=== PATIENT | female | born 1965 | race Caucasian/White ===

== ENCOUNTER → 2019-05-07 | Outpatient (CLI) | payer OTHER ==
[2015-06-06 05:38] VITALS: BP 138/67
[~2019-05-07] MED LIST: AZIT500T PO; BUPR200T PO; CITA20TA9 PO; CYCL-331 PO; DIAZ5TAB4 PO; DIURETIC; FLUT16SP21 NS; HYDR-2145 PO; HYDR4TAB45 PO; LAMO200T6 PO; LEVO50TA5 PO; METH4TAB2 PO; METR500T PO; OMEP40CA2 PO; OTC potassium; PANT40TA3 PO; POTA8TAB6 PO; RISP0.5T3 PO; SIMV40TA18 PO; TRAZ-86 PO
--- NOTE | 2019-05-07 13:19 | RAD ---
EXAM: Lumbar spine, 3 views. HISTORY: Pain. COMPARISON: None. FINDINGS: 3 views of the lumbar spine are obtained. There is grade 1 anterolisthesis of L5 on S1. There is degenerative endplate remodeling with disc space narrowing and facet arthropathy at this level. There is suspected nephrolithiasis. IMPRESSION: 1. Degenerative change primarily at L5-S1. There is associated grade 1 anterolisthesis this level. 2. No acute osseous finding. Electronically signed by: Beatriz Grover MD (05/07/2019 1:16 PM) [facility]
== END | disposition home or self-care (01) ==
LOC: DXRAD 09:02
PROVIDERS: ATTEND Surgery
DX: M47.817 Spondylosis without myelopathy or radiculopathy, lumbosacral region (principal); M48.07 Spinal stenosis, lumbosacral region; M46.87 Other specified inflammatory spondylopathies, lumbosacral region; M43.17 Spondylolisthesis, lumbosacral region
CPT/HCPCS: 72100

== ENCOUNTER → 2019-06-05 | Outpatient (CLI) | payer MEDICAID ==
[2015-06-06 05:38] VITALS: BP 138/67
[~2019-06-05] MED LIST changes: +TRAZ-125 PO; -TRAZ-86 PO
--- NOTE | 2019-06-05 13:02 | RAD ---
EXAM: Lumbar spine, 5 views. HISTORY: Pain. COMPARISON: 05/07/2019. FINDINGS: 5 views of the lumbar spine are obtained. There aren't 5 nonrib-bearing lumbar vertebral segments. There is grade 1 anterolisthesis of L5 and S1. There is degenerative endplate remodeling with disc space narrowing and facet arthropathy at this level. There is suspected left nephrolithiasis. IMPRESSION: 1. Grade 1 anterolisthesis of L5 on S1 with associated degenerative change. This is not appreciably changed compared to the recent comparison exam. 2. No acute osseous finding. Electronically signed by: Beatriz Grover MD (06/05/2019 12:59 PM) [facility]
== END | disposition home or self-care (01) ==
LOC: DXRAD 11:11
PROVIDERS: ATTEND Family Medicine
DX: M43.17 Spondylolisthesis, lumbosacral region (principal); M48.07 Spinal stenosis, lumbosacral region; M46.87 Other specified inflammatory spondylopathies, lumbosacral region; M79.7 Fibromyalgia
CPT/HCPCS: 72110

== ENCOUNTER → 2019-06-28 | Outpatient (CLI) | payer MEDICAID ==
[2015-06-06 05:38] VITALS: BP 138/67
--- NOTE | 2019-06-28 13:53 | RAD ---
EXAM: Pelvic sonogram. HISTORY: Pain. Left ovarian cyst. TECHNIQUE: Transabdominal and transvaginal sonographic imaging of the pelvis is performed. COMPARISON: CT dated 06/05/2015. FINDINGS: The uterus measures 6.6 x 3.9 x 3.2 cm. The endometrial stripe measures 4 mm in thickness. The right ovary is obscured due to bowel gas. There are multiple left ovarian cysts or single cyst with multiple septations measuring 4.8 cm in conglomerate. There is blood flow within the surrounding left ovarian parenchyma. There is an incidental nabothian cyst within the cervix. There is no pelvic free fluid. IMPRESSION: 1. Multiple cysts or complex cyst with septations within the left adnexa measuring 4.8 cm, likely ovarian or paraovarian in etiology. This is demonstrated on a CT dated 06/05/2015. The 4 year course of stability, allowing for differences in imaging modality, favors benignity. However, given the postmenopausal status the patient, correlation with a serum CA-125 tumor marker level, possible surgical consultation and continued follow-up is recommended. 2. Obscured right ovary. Electronically signed by: Beatriz Grover MD (06/28/2019 1:49 PM) [facility]
== END | disposition home or self-care (01) ==
LOC: US 12:34
PROVIDERS: ATTEND Obstetrics & Gynecology
DX: N88.8 Other specified noninflammatory disorders of cervix uteri (principal); Z78.0 Asymptomatic menopausal state
CPT/HCPCS: 76830; 76856

== ENCOUNTER → 2019-07-09 | Outpatient (CLI) | payer MEDICAID ==
[2015-06-06 05:38] VITALS: BP 138/67
== END | disposition home or self-care (01) ==
LOC: LAB 10:42
PROVIDERS: ATTEND Obstetrics & Gynecology
DX: N83.299 Other ovarian cyst, unspecified side (principal)
CPT/HCPCS: 36415; 86304; 86305

== ENCOUNTER 2019-07-25 04:58 | Emergency (ER) | payer MEDICAID ==
[~2019-07-25] VITALS: Ht 165.1 cm; Wt 100.2 kg
--- NOTE | 2019-07-25 05:06 | PHYS DOC ---
Past History Past Medical History: Anxiety, Bipolar, Cancer, High Cholesterol, Hypertension, Hypothyroid, Migraines, Other (SANIA ELLISON MD) Past Surgical History: Cancer Surgery, , Tubal ligation (SANIA ELLISON MD) Smoking: Greater than 1 pack/day Alcohol Use: Rarely Drug Use: None (SANIA ELLISON MD) Adult General Chief Complaint Chief Complaint: ..." I ve had a headache for two days now.. ever since I bumped my head on table when I was cleaning a high chair.. I ve not been able to sleep for two days... and I took my BP and it was only 56/... and I was dizzy so I felt I had to get to hospital right away... " HPI HPI Patient is a 53 year old female who presents with above hx and complaints of a headache for 2 days and hypotension tonight. Patient has a multitude of presenting medical complaints. Patient has history of bipolar disorder, anxiety disorder, kidney cancer on the left-status post surgery, ovarian cysts, high cholesterol, hypertension, hypothyroidism, chronic migraines, chronic neck and low back pain, dysfunctional uterine bleeding, left ovarian cyst, chronic pain and fibromyalgia. Patient currently following with Dr. Tavarez. Patient has a recent change off her Wellbutrin to Cymbalta. Change to lisinopril to verapamil. (SANIA ELLISON MD) Review of Systems Review of Systems Constitutional: Denies fever or chills [] Eyes: Denies change in visual acuity, redness, or eye pain [] HENT: Denies nasal congestion or sore throat [] Respiratory: Complaints of shortness of breath [] Cardiovascular: No additional information not addressed in HPI [] GI: Denies abdominal pain, vomiting, bloody stools or diarrhea Pt. ]complaints of nausea : Denies dysuria or hematuria [] Musculoskeletal:. Complaints of back pain , neck pain, and joint pain [] Integument: Denies rash or skin lesions [] Neurologic: Complaints of headache. Complains of insomnia. Endocrine: Denies polyuria or polydipsia [] All other systems were reviewed and found to be within normal limits, except as documented in this note. (SANIA ELLISON MD) Family History Family History Patient adopted does not know her family history (SANIA ELLISON MD) Current Medications Current Medications He nursing for home medications (SANIA ELLISON MD) Allergies Allergies Allergies Coded Allergies Type Severity Reaction Last Updated Verified adhesive tape Allergy Intermediate 06/05/15 Yes codeine Allergy Intermediate Nausea 06/05/15 Yes influenza virus vaccine, specific Allergy Intermediate 12/02/14 Yes pneumococcal vaccine Allergy Intermediate 12/02/14 Yes latex Allergy Unknown 06/05/15 Yes Penicillins Adverse Reaction Unknown MILD 12/02/14 Yes (SANIA ELLISON MD) Physical Exam Physical Exam Constitutional: in acute emotional distress, non-toxic appearance. [] HENT: Normocephalic, atraumatic, bilateral external ears normal, oropharynx moist, no oral exudates, nose normal. Very poor dentition Eyes: PERRLA, EOMI, conjunctiva normal, no discharge. [] Neck: Normal range of motion, complains of general para cervical tenderness, supple, no stridor. [] Cardiovascular:Heart rate regular rhythm, no murmur [] Lungs & Thorax: Bilateral breath sounds equal apex with few scattered wheezes auscultation [] Abdomen: Bowel sounds normal, soft, no tenderness, no masses, no pulsatile masses. Multiple old surgery scars. Obese Skin: Warm, dry, no erythema, no rash. [] Back: No tenderness, no CVA tenderness. [] Extremities: No tenderness, no cyanosis, no clubbing, ROM intact, no edema. [] Neurologic: Alert and oriented X 3, moves all extremities on request, does have distal sensory, no focal deficits noted. DTRs +3 at patella. Does have some clonus deep tendon percussion of patella. Psychologic: Affect extremely anxious,, judgement normal, mood normal. [] (SANIA ELLISON MD) EKG EKG Pending at shift change[] (SANIA ELLISON MD) Radiology/Procedures Radiology/Procedures CT and chest x-ray pending at shift change[] (SANIA ELLISON MD) Course & Med Decision Making Course & Med Decision Making Pertinent Labs and Imaging studies reviewed. (See chart for details) Dr. Christianson will make final disposition on patient. Impression: 1. Headche 2. Insomnia 3. Reported Hypotension? 4. Hx. of Bipolar 5. Hx. Anxiety Disorder [] (SANIA ELLISON MD) Course & Med Decision Making Patient care was received from Dr. Ellison at 6:00 AM. At the time of his departure, a workup was pending to include blood work as well as CT of the head and chest x-ray. Patient's workup is returned unremarkable. Findings were reviewed with patient and patient indicated that she is applying for disability and specifically was wondering if this visit would apply for her disability yovani blankenship. Patient states that she has numerous mental health problems. (TATO CHRISTIANSON Jr. DO) Dragon Disclaimer Dragon Disclaimer This electronic medical record was generated, in whole or in part, using a voice recognition dictation system. (SANIA ELLISON MD) Departure Departure: Impression: Primary Impression: Headache Additional Impression: Dizziness Disposition: 01 HOME, SELF-CARE Condition: STABLE Referrals: RAY TAVAREZ MD (PCP) Patient Instructions: Dizziness, Headache, FAQs Additional Instructions: Follow-up with your primary care provider in the next few days. Scripts Meclizine Hcl (MECLIZINE HCL) 25 Mg Tablet 1 TAB PO PRN TID PRN for DIZZINESS, #30 TAB Prov: TATO CHRISTIANSON Jr., DO 07/25/19 Dragon Disclaimer This chart was dictated in whole or in part using Voice Recognition software in a busy, high-work load, and often noisy Emergency Department environment. It may contain unintended and wholly unrecognized errors or omissions. (SANIA ELLISON MD) Problem Qualifiers Primary Impression: Headache Headache type: unspecified Headache chronicity pattern: episodic headache Intractability: not intractable Qualified Codes: R51 - Headache SANIA ELLISON MD Jul 25, 2019 05:06 TATO CHRISTIANSON Jr., DO Jul 25, 2019 07:23
[2019-07-25] MEDS ORDERED: IV RINGERS SOLUTION,LACTATED 1,000 ML IV SCH (06:08)
[2019-07-25 06:28] LABS: BASO # 0.1 x10^3/uL (0.0-0.2); BASO % 1 % (0-3); EOS # 0.2 x10^3/uL (0.0-0.7); EOS % 2 % (0-3); HEMATOCRIT 45.5 % (36.0-47.0); HEMOGLOBIN 15.1 g/dL (12.0-15.5); LYMPH # 0.9 x10^3/uL (1.0-4.8); LYMPH % 9 % (24-48); MEAN CORPUSCULAR HEMOGLOBIN 32 pg (25-35); MEAN CORPUSCULAR HGB CONC 33 g/dL (31-37); MEAN CORPUSCULAR VOLUME 96 fL (79-100); MONO # 0.5 x10^3/uL (0.0-1.1); MONO % 5 % (0-9); NEUT # 8.3 x10^3uL (1.8-7.7); NEUT % 84 % (31-73); PLATELET COUNT 297 x10^3/uL (140-400); RED BLOOD COUNT 4.77 x10^6/uL (3.50-5.40); RED CELL DISTRIBUTION WIDTH 13.5 % (11.5-14.5); WHITE BLOOD COUNT 9.9 x10^3/uL (4.0-11.0)
[2019-07-25 06:31] LABS: CALCIUM 8.6 mg/dL (8.5-10.1); CREATININE 1.1 mg/dL (0.6-1.0); GFR 52.4; POTASSIUM 3.2 mmol/L (3.5-5.1)
[2019-07-25 06:32] LABS: BARBITURATES NEG (NEG); BENZODIAZEPINES POS (NEG); CANNABINOIDS NEG (NEG); COCAINE NEG (NEG); METHADONE NEG (NEG); OPIATES POS (NEG); PHENCYCLIDINE NEG (NEG)
[2019-07-25 06:34] LABS: AMPHETAMINE/METHAMPHETAMINE NEG (NEG)
--- NOTE | 2019-07-25 06:35 | RAD ---
CT brain without contrast. HISTORY: Headache, ears ringing, light sensitivity. CT scan of the brain was done without contrast. Sinuses are clear. There is no skull fracture. There is no intracranial hemorrhage or subdural hematoma. There is no mass or shift of the midline. Ventricles are normal in size. There are no abnormal areas of increased or decreased attenuation. IMPRESSION: 1. No intracranial hemorrhage or acute finding noted. PQRS Compliance Statement: One or more of the following individualized dose reduction techniques were utilized for this examination: 1. Automated exposure control 2. Adjustment of the mA and/or kV according to patient size 3. Use of iterative reconstruction technique Electronically signed by: Thompson Atkins MD (07/25/2019 6:33 AM) [facility]
--- NOTE | 2019-07-25 06:42 | RAD ---
PA and lateral chest. HISTORY: Chest pain, dyspnea PA and lateral views were taken of the chest. Lungs are clear. Heart is normal in size. There is no pleural effusion. IMPRESSION: 1. No acute chest disease. Electronically signed by: Thompson Atkins MD (07/25/2019 6:39 AM) [facility]
[2019-07-25 06:43] LABS: ALBUMIN 3.8 g/dL (3.4-5.0); DIRECT BILIRUBIN 0.1 mg/dL (0.0-0.2); MAGNESIUM 2.3 mg/dL (1.8-2.4); TOTAL BILIRUBIN 0.2 mg/dL (0.2-1.0); TOTAL PROTEIN 7.7 g/dL (6.4-8.2)
[2019-07-25 06:48] LABS: CLARITY,URINE CLOUDY; COLOR,URINE YELLOW
[2019-07-25 06:49] LABS: BACTERIA,URINE MOD /HPF (0-FEW); BILIRUBIN,URINE NEG (NEG); GLUCOSE,URINE NEG (NEG); HYALINE CASTS, URINE FEW /HPF; NITRITE,URINE NEG (NEG); RBC,URINE OCC /HPF (0-2); SQUAMOUS EPITHELIAL CELL,UR MANY /LPF; UROBILINOGEN,URINE 0.2 mg/dL (0.2 mg/dL)
[2019-07-25] MEDS ORDERED: KETOROLAC 30 MG/ML VIAL. IVP ONE (07:00)
[2019-07-25 07:19] VITALS: BP 119/66
[2019-07-25] MEDS ORDERED: MECL-75 PO (07:22)
--- NOTE | 2019-07-25 16:16 | EKG ---
[address] [address] Test Date: 2019-07-25 Test Time: 06:38:43 Pat Name: ARABELLA WOODRUFF Department: Room: Gender: F [employer]: : 1965 Requested By: SANIA RIDER Order Number: [id number] Reading MD: Measurements Intervals [place] Rate: 69 P: 60 WI: 124 QRS: 24 QRSD: 124 T: 27 QT: 460 QTc: 495 Interpretive Statements SINUS RHYTHM QRS(T) CONTOUR ABNORMALITY CONSIDER INFERIOR INFARCT POSSIBLY ABNORMAL ECG RI6.01 No previous ECG available for comparison
== END 2019-07-25 07:30 | disposition home or self-care (01) ==
LOC: ER 04:58
DX: G43.909 Migraine, unspecified, not intractable, without status migrainosus (principal); R42 Dizziness and giddiness; G47.00 Insomnia, unspecified; F41.9 Anxiety disorder, unspecified; F31.9 Bipolar disorder, unspecified; E78.00 Pure hypercholesterolemia, unspecified; I10 Essential (primary) hypertension; E03.9 Hypothyroidism, unspecified; F17.200 Nicotine dependence, unspecified, uncomplicated; Z88.8 Allergy status to other drugs, medicaments and biological substances; Z88.5 Allergy status to narcotic agent; Z88.7 Allergy status to serum and vaccine; Z91.040 Latex allergy status; Z88.0 Allergy status to penicillin
CPT/HCPCS: 36415; 70450; 71046; 80048; 80076; 80307; 81001; 82550; 83690; 83735; 83880; 84443; 84484; 85025; 85379; 85610; 85730; 87086; 93005; 96361; 96374; 99285; J1885; J7120

== ENCOUNTER → 2020-03-13 | Outpatient (CLI) | payer MEDICAID ==
[~2020-03-13] MED LIST changes: +MECL-75 PO
--- NOTE | 2020-03-13 10:46 | RAD ---
EXAM: Right lower extremity venous Doppler sonogram. HISTORY: Pain and swelling. TECHNIQUE: Starr scale and color Doppler sonographic evaluation of the right lower extremity veins with spectral waveform analysis was performed. FINDINGS: There is normal color flow, normal compressibility and there are normal spectral waveforms in the common femoral, superficial femoral, popliteal, posterior tibial and greater saphenous veins. IMPRESSION: No Doppler evidence of lower extremity deep venous thrombosis. Electronically signed by: Beatriz Grover MD (03/13/2020 10:43 AM) [id number]
== END | disposition home or self-care (01) ==
LOC: US 09:44
PROVIDERS: ATTEND Family Medicine
DX: R22.41 Localized swelling, mass and lump, right lower limb (principal); R79.89 Other specified abnormal findings of blood chemistry
CPT/HCPCS: 93971

== ENCOUNTER 2020-10-03 19:55 | Emergency (ER) | payer MEDICAID ==
[~2020-10-03] VITALS: Ht 165.1 cm; Wt 103.1 kg
[~2020-10-03 19:55] MED LIST changes: -BUPR200T PO; +BUPR200T3 PO; -RISP0.5T3 PO; +RISP0.5T62 PO
--- NOTE | 2020-10-03 20:00 | PHYS DOC ---
Past History Past Medical History: Anxiety, Bipolar, Cancer, GERD, High Cholesterol, Hypertension, Hypothyroid, Migraines, Other Additional Past Medical Histor: panic disorder, bipolar 1 with cycling, ptsd Past Surgical History: Cancer Surgery, , Tubal ligation Smoking: Greater than 1 pack/day Alcohol Use: Rarely Drug Use: None General Adult HPI: HPI: ".. I am allergic to everything....and I got the Moderna shot on .. in this Rt. arm.. but today .. I feel like my neck is closing....off. ..".. " I am in a panic.. that my throat is closing off..." Patient is a 55 year old female who presents with above hx and complaints allergic reaction and subjective feeling that her throat is closing off. Patient feels she is having allergic reaction to them in turn her shot she got on , 01 October. Patient had no symptoms until today of feeling her tongue is enlarged and her throat is "closing off. Patient is very anxious. Patient does have a history of multiple drug allergies and sensitivities. Patient denies any changes in meds, new exposures or foods. Currently patient does not have any obvious stridor does have some scattered wheezes. Patient currently refusing any albuterol treatments states she is allergic and it would kill her. Patient has past medical history of multiple drug allergies sensitivities, a left partial nephrectomy due to kidney cancer, C-sections, chronic pain, episodic episodes of diarrhea, endometriosis, anxiety, bipolar disorder, hypercholesterol, hypertension, hypothyroidism and migraines. Patient is able to smoke a pack of cigarettes a day. Does use alcohol occasionally. Patient does not know her family history because she is adopted. Patient only follows with Dr. Tavarez. Review of Systems: Review of Systems: Constitutional: Denies fever or chills Eyes: Denies change in visual acuity HENT: Denies nasal congestion. Complains her throat is closing off Respiratory: Complains of shortness of breath Cardiovascular: Denies chest pain or edema GI: Denies abdominal pain, nausea, vomiting, bloody stools or diarrhea : Denies dysuria Musculoskeletal: Denies back pain or joint pain Integument: Denies rash Neurologic: Denies headache, focal weakness or sensory changes Endocrine: Denies polyuria or polydipsia Lymphatic: Denies swollen glands Psychiatric: Denies depression or anxiety Family History: Family History: Does not know family history because she is adopted Current Medications: Current Meds: See nursing for home meds Allergies: Allergies: Allergies Coded Allergies Type Severity Reaction Last Updated Verified Sulfa (Sulfonamide Antibiotics) Allergy Intermediate Nausea and Vomiting 07/25/19 Yes adhesive tape Allergy Intermediate 06/05/15 Yes codeine Allergy Intermediate Nausea 06/05/15 Yes influenza virus vaccine, specific Allergy Intermediate 12/02/14 Yes pneumococcal vaccine Allergy Intermediate 12/02/14 Yes latex Allergy Unknown 06/05/15 Yes methylene blue Allergy Unknown 07/25/19 Yes albuterol Adverse Reaction Intermediate Shortness of Air 07/25/19 Yes Penicillins Adverse Reaction Unknown MILD 12/02/14 Yes Physical Exam: PE: Constitutional: In acute emotional distress, panic in appearance. [] HENT: Normocephalic, atraumatic, bilateral external ears normal, oropharynx moist, no oral exudates, nose slightly congested turbinates and clear rhinorrhea. There is no swelling of her tongue Eyes: PERRLA, EOMI, conjunctiva normal, no discharge. [] Neck: Normal range of motion, no tenderness, supple, no stridor. [] Cardiovascular:Heart rate regular rhythm, no murmur [] Lungs & Thorax: Bilateral breath sounds equal apex with scattered wheezes auscultation [] Abdomen: Bowel sounds normal, soft, no tenderness, no masses, no pulsatile m asses. Old surgery scars Skin: Warm, dry, no erythema, no rash. [] Back: No tenderness, no CVA tenderness. [] Extremities: No tenderness, no cyanosis, no clubbing, ROM intact, bilateral ankl e edema. [] There is no inflammation or reaction at site of injection of Moderia on her right deltoidl. Neurologic: Alert and oriented X 3, normal motor function, normal sensory function, no focal deficits noted. [] Psychologic: Affect extremely anxious, her anxiety limits her judgement and ability to understand mechanisms of anaphylaxis. EKG: EKG: [] Radiology/Procedures: Radiology/Procedures: [][address] [address] IMAGING REPORT Signed PATIENT: ARABELLA WOODRUFF LACCOUNT: [id number] : 1965 LOCATION: ER AGE: 55 SEX: F EXAM STATUS: REG ER ORD. PHYSICIAN: SANIA RIDER MD REASON: dyspnea PROCEDURE: CHEST AP ONLY XR NECK SOFT TISSUE, XR CHEST 1V 10/03/2020 10:09 PM INDICATION: Dyspnea COMPARISON: 07/25/2019 chest radiograph TECHNIQUE: Portable frontal view of the chest is provided. AP and lateral views of the neck soft tissues are provided. FINDINGS: The cardiomediastinal silhouette is within normal limits. Lungs are clear. There are no significant pleural effusions. There is no pulmonary vascular congestion. No pneumothorax. No suspicious osseous abnormality. Mild disc height loss at C5-C6 with moderate intramarginal osteophytosis. No prevertebral soft tissue swelling. Nasopharyngeal and oropharyngeal airways are widely patent. Epiglottis is normal in appearance. No radiopaque foreign body identified within the neck soft tissues. There is no subglottic stenosis. IMPRESSION: There is no acute cardiopulmonary process. Normal appearance of the neck soft tissues. Electronically signed by: Gwen Marmolejo MD (10/03/2020 10:33 PM) [facility] DICTATED AND SIGNED BY: GWEN MARMOLEJO MD DATE: 10/03/202231 CC: SANIA RIDER MD; [place] [address] IMAGING REPORT Signed PATIENT: ARABELLA WOODRUFF LACCOUNT: [id number] : 1965 LOCATION: ER AGE: 55 SEX: F EXAM STATUS: REG ER ORD. PHYSICIAN: SANIA RIDER MD REASON: dyspnea, TONGUE SWELLING, THROAT TIGHTNESS PROCEDURE: NECK SOFT TISSUE XR NECK SOFT TISSUE, XR CHEST 1V 10/03/2020 10:09 PM INDICATION: Dyspnea COMPARISON: 07/25/2019 chest radiograph TECHNIQUE: Portable frontal view of the chest is provided. AP and lateral views of the neck soft tissues are provided. FINDINGS: The cardiomediastinal silhouette is within normal limits. Lungs are clear. There are no significant pleural effusions. There is no pulmonary vascular congestion. No pneumothorax. No suspicious osseous abnormality. Mild disc height loss at C5-C6 with moderate intramarginal osteophytosis. No pre vertebral soft tissue swelling. Nasopharyngeal and oropharyngeal airways are widely patent. Epiglottis is normal in appearance. No radiopaque foreign body identified within the neck soft tissues. There is no subglottic stenosis. IMPRESSION: There is no acute cardiopulmonary process. Normal appearance of the neck soft tissues. Electronically signed by: Gwen Marmolejo MD (10/03/2020 10:33 PM) [facility] DICTATED AND SIGNED BY: GWEN MARMOLEJO MD DATE: 10/03/202231 CC: SANIA RIDER MD; RAY TAVAREZ MD ~MTH0 0 Heart Score: C/O Chest Pain: N/A Risk Factors: Risk Factors: DM, Current or recent (<one month) smoker, HTN, HLP, family history of CAD, obesity. Risk Scores: Score 0 - 3: 2.5% MACE over next 6 weeks - Discharge Home Score 4 - 6: 20.3% MACE over next 6 weeks - Admit for Clinical Observation Score 7 - 10: 72.7% MACE over next 6 weeks - Early Invasive Strategies Course & Med Decision Making: Course & Med Decision Making Pertinent Labs and Imaging studies reviewed. (See chart for details) Patient eventually agreed to take Pepcid 20 mg, Benadryl 50 mg and 2 g infusion magnesium. No findings of upper airway narrowing or significant pulmonary findings noted on chest x-ray. With time patient's anxiety resolved and all symptoms of subjective of allergic reaction resolved. Patient is discharged home. Patient is to continue Benadryl 25 to 50 mg 4 times a day orally. Take Pepcid 20 mg twice a day. No findings of narrowing of airway noted on x-rays or chest x-ray. Impression: 1. Reports delayed allergic reaction to Modernia-Covid vaccination 2. Anxiety/panic attack [] Dragon Disclaimer: Dragon Disclaimer: This electronic medical record was generated, in whole or in part, using a voice recognition dictation system. Departure Departure: Referrals: RAY TAVAREZ MD (PCP) Scripts Famotidine (PEPCID) 20 Mg Tablet 20 MG PO BID for allergic for 14 Days, #28 TAB Prov: SANIA RIDER MD 10/03/20 Dragon Disclaimer This chart was dictated in whole or in part using Voice Recognition software in a busy, high-work load, and often noisy Emergency Department environment. It may contain unintended and wholly unrecognized errors or omissions. SANIA RIDER MD Oct 03, 2020 20:00
[2020-10-03] MEDS ORDERED: MAGNESIUM SULFATE 2GM 50 ML IV ONE (21:45)
[2020-10-03] MEDS ORDERED: FAMOTIDINE 20 MG/2 ML VIAL IVP ONE (21:45)
[2020-10-03] MEDS ORDERED: diphenhydrAMINE 50 MG/ML VIAL IVP ONE (22:00)
--- NOTE | 2020-10-03 22:36 | RAD ---
XR NECK SOFT TISSUE, XR CHEST 1V 10/03/2020 10:09 PM INDICATION: Dyspnea COMPARISON: 07/25/2019 chest radiograph TECHNIQUE: Portable frontal view of the chest is provided. AP and lateral views of the neck soft tiss ues are provided. FINDINGS: The cardiomediastinal silhouette is within normal limits. Lungs are clear. There are no significant pleural effusions. There is no pulmonary vascular congestion. No pneumothora x. No suspicious osseous abnormality. Mild disc height loss at C5-C6 with moderate intramarginal osteophytosis. No prevertebral soft tissue swelling. Nasopharyngeal and oropharyngeal airways are widely patent. Epiglottis is normal in appear ance. No radiopaque foreign body identified within the neck soft tissues. There is no subglottic sten osis. IMPRESSION: There is no acute cardiopulmonary process. Normal appearance of the neck soft tissues. Electronically signed by: Radha Beal MD (10/03/2020 10:33 PM) [facility]
[2020-10-03] MEDS ORDERED: FAMO-63 PO (23:09)
[2020-10-04] VITALS: BP 148/78
== END 2020-10-04 00:08 | disposition home or self-care (01) ==
LOC: ER 19:55
DX: T78.49XA Other allergy, initial encounter (principal); K21.9 Gastro-esophageal reflux disease without esophagitis; E78.00 Pure hypercholesterolemia, unspecified; I10 Essential (primary) hypertension; F31.9 Bipolar disorder, unspecified; G43.909 Migraine, unspecified, not intractable, without status migrainosus; E03.9 Hypothyroidism, unspecified; F43.10 Post-traumatic stress disorder, unspecified; F17.200 Nicotine dependence, unspecified, uncomplicated; Z88.0 Allergy status to penicillin; Z88.1 Allergy status to other antibiotic agents; Z88.2 Allergy status to sulfonamides; Z88.5 Allergy status to narcotic agent; Z91.040 Latex allergy status; Z88.7 Allergy status to serum and vaccine; Z88.8 Allergy status to other drugs, medicaments and biological substances; Y84.8 Other medical procedures as the cause of abnormal reaction of the patient, or of later complication, without mention of misadventure at the time of the procedure; Y92.89 Other specified places as the place of occurrence of the external cause
CPT/HCPCS: 70360; 71045; 96365; 96366; 96375; 99284; J1200; J3475; J3490

== ENCOUNTER → 2020-10-05 | Outpatient (CLI) | payer MEDICAID ==
[2020-10-04] VITALS: BP 148/78
[~2020-10-05] MED LIST changes: +FAMO-63 PO
--- NOTE | 2020-10-06 11:36 | RAD ---
XR ABDOMEN 1V Clinical Indication: Reason: ABDOMINAL PAIN / Comparison: CT abdomen and pelvis with contrast 06/05/2015. Findings: No obvious opacity of the lung bases. Moderate colon stool volume. No dilated small bowel. No obvious organomegaly. Tiny phleboliths in the pelvis. Bones unremarkable. IMPRESSION: 1. Nonobstructive bowel gas pattern. 2. Moderate colon stool volume, correlate for constipation. Electronically signed by: Jaden Troy MD (10/06/2020 11:34 AM) [id number]
--- NOTE | 2020-10-06 11:40 | RAD ---
XR EXAM OF ANKLE_LEFT 2V Clinical Indication: Reason: ANKLE PAIN, INJURY / Spl. Instructions: / History: Comparison: None. Findings: Sensitivity decreased without third view. There are tiny calcaneal bone spurs. There is no acute fracture. There is minimal medial ankle soft t issue swelling. The ankle mortise is intact. The mineralization is normal. IMPRESSION: No acute fracture is seen. Electronically signed by: Jaden Troy MD (10/06/2020 11:37 AM) [id number]
== END ==
LOC: RAD 16:08
PROVIDERS: ATTEND Family Medicine
DX: M77.32 Calcaneal spur, left foot (principal); R10.84 Generalized abdominal pain
CPT/HCPCS: 73600; 74018

== ENCOUNTER → 2021-11-23 | Outpatient (CLI) | payer OTHER, MEDICAID ==
[~2021-11-23] MED LIST changes: -BUPR200T3 PO; +BUPR200T6 PO; -CYCL-331 PO; +CYCL10TA19 PO
--- NOTE | 2021-11-23 15:39 | RAD ---
XR HIP (WITH OR WITHOUT PELVIS) RIGHT 1 VIEW History: Reason: RT HIP PAIN / Spl. Instructions: / History: Technique: AP view the pelvis and additional view of the right hip. Comparison: None. Findings: No dislocation. No acute fracture. Right gluteal soft tissue dystrophic calcification. Lower lumbar s pondylosis. Impression: 1. No acute osseous abnormality. Electronically signed by: Juan Traore DO (11/23/2021 3:37 PM) [id number]
== END ==
LOC: RAD 10:36
PROVIDERS: ATTEND Physician Assistant
DX: M25.851 Other specified joint disorders, right hip (principal); M47.816 Spondylosis without myelopathy or radiculopathy, lumbar region
CPT/HCPCS: 73501